=== PATIENT | female | born 1955 | race Caucasian/White ===

== ENCOUNTER 2019-08-31 07:32 | Emergency (ER) | payer MEDICARE, OTHER ==
[~2019-08-31] VITALS: Ht 160 cm; Wt 27.2 kg
[2019-08-31] MEDS ORDERED: ONDANSETRON 4 MG/2 ML VIAL ONE (07:46)
[2019-08-31 08:00] LABS: BASOPHILS % (AUTO) 0.5 % (0.0-2.0); EOSINOPHILS # (AUTO) 0.1 K/uL (0.0-0.7); EOSINOPHILS % (AUTO) 1.4 % (0.0-7.0); HEMATOCRIT 40.5 % (31.2-41.9); HEMOGLOBIN 13.6 g/dL (10.9-14.3); LYMPHOCYTES # (AUTO) 1.8 K/uL (20.0-40.0); LYMPHOCYTES % (AUTO) 24.8 % (20.5-51.5); MEAN CORPUSCULAR HEMOGLOBIN 29.6 uug (24.7-32.8); MEAN CORPUSCULAR HGB CONC 34 g/dL (32.3-35.6); MONOCYTES # (AUTO) 0.4 K/uL (2.0-10.0); NEUTROPHILS # (AUTO) 4.9 K/uL (1.8-8.9); NEUTROPHILS % (AUTO) 67.3 % (38.5-71.5); PLATELET COUNT (AUTO) 251 K/uL (179-408); WHITE BLOOD COUNT (AUTO) 7.2 K/uL (3.8-11.8)
[2019-08-31 08:07] LABS: CREATININE 1.4 mg/dL (0.6-1.3); POTASSIUM 3.8 mmol/L (3.5-5.1)
[2019-08-31] MEDS ORDERED: SWABABLE VALVE TRANSFER SET EA MC ONE (08:18)
[2019-08-31] MEDS: IV NORMAL SALINE 1000 ML BAG IV ONE (08:18)
[2019-08-31] MEDS ORDERED: IV NORMAL SALINE 250 ML IV ONE (08:18)
[2019-08-31] MEDS ORDERED: IOHEXOL 300MG/ML 100 ML INFUS..BTL ONE (08:18)
--- NOTE | 2019-08-31 08:18 | NUR ---
PT IS IN ROOM #1B. DR VILLALOBOS EVALUATED THE PT.
[2019-08-31] MEDS: ONDANSETRON 4 MG/2 ML VIAL IV ONE (08:19)
[2019-08-31 08:23] LABS: BILIRUBIN,DIRECT 0.1 mg/dL (0.0-0.2); BILIRUBIN,TOTAL 0.3 mg/dL (0.2-1.0); TOTAL PROTEIN, SERUM 7.1 g/dL (6.4-8.2)
[2019-08-31] MEDS ORDERED: FAMOTIDINE. 20 MG/2 ML VIAL IV ONE (08:25)
[2019-08-31] MEDS: FAMOTIDINE. 20 MG/2 ML VIAL IV ONE (08:31)
[2019-08-31 10:00] LABS: *BILIRUBIN,URIN NEGATIVE (NEGATIVE); *BLOOD, URINE TRACE (NEGATIVE); *CLARITY,URINE CLEAR (CLEAR); *COLOR,URINE LIGHT YELLOW (YELLOW); *KETONES,URINE NEGATIVE (NEGATIVE); *UROBILINOGEN,URINE 0.2 E.U./dl (NORMAL); LEUKOCYTE ESTERASE ,URINE TRACE (NEGATIVE); NITRITE, URINE NEGATIVE (NEGATIVE); UGLUCOSE NEGATIVE (NEGATIVE)
[2019-08-31] MEDS ORDERED: CIPROFLOXACIN HCL 250 MG TABLET ONE (10:15)
[2019-08-31] MEDS ORDERED: METRONIDAZOLE 500 MG TABLET ONE (10:15)
[2019-08-31] MEDS: METRONIDAZOLE 500 MG TABLET PO ONE (10:20)
[2019-08-31] MEDS: CIPROFLOXACIN HCL 250 MG TABLET PO ONE (10:20)
--- NOTE | 2019-08-31 10:21 | NUR ---
pt was d/c'D to home after dr Rebeca tran. d/c instructions given to the pt by dr rivas.
[2019-08-31 10:24] VITALS: BP 131/69
[2019-08-31 15:42] LABS: BACTERIA,URINE RARE /HPF (NONE SEEN)
[2019-08-31 15:43] LABS: SQUAMOUS EPITHELIAL CELL,UR FEW /HPF (NONE SEEN)
== END 2019-08-31 10:24 | disposition home or self-care (01) ==
LOC: ER 07:32
DX: K52.9 Noninfective gastroenteritis and colitis, unspecified (principal); R19.7 Diarrhea, unspecified; Z20.828 Contact with and (suspected) exposure to other viral communicable diseases
CPT/HCPCS: 36415; 74177; 80048; 80076; 81001; 83690; 84484; 85025; 93005; 96361; 96374; 96375; 99285; J2405; J3490; Q9967; 70030-TC; A4663; J7030; J7050

== ENCOUNTER 2019-09-02 10:08 | Emergency (ER) | payer MEDICARE ==
[~2019-09-02] VITALS: Ht 160 cm; Wt 70.8 kg
[2019-09-02] MEDS ORDERED: SWABABLE VALVE TRANSFER SET EA MC ONE (10:42)
[2019-09-02] MEDS ORDERED: IOHEXOL 300MG/ML 100 ML INFUS..BTL ONE (10:42)
[2019-09-02] MEDS ORDERED: IV NORMAL SALINE 250 ML IV ONE (10:42)
--- NOTE | 2019-09-02 10:46 | NUR ---
PATIENT WAS SEEN BY . PATIENTSTATES SHE WAS JUST HERE AND HAD MULTIPLE TESTS BUT SHE STILL HAS ABDOMINAL PAIN. IV ATTEMPT BY ME JOHN YAN UNSUCCESSFUL. DR MENDEZ ASSISTED WITH US AND PLACED A 20G IN HER LEFT ARM.
[2019-09-02] MEDS: IV NORMAL SALINE 1000 ML BAG IV ONE (11:40)
[2019-09-02] MEDS: ONDANSETRON 4 MG/2 ML VIAL IV ONE (11:42)
[2019-09-02 11:44] LABS: *BILIRUBIN,URIN NEGATIVE (NEGATIVE); *CLARITY,URINE CLEAR (CLEAR); *COLOR,URINE YELLOW (YELLOW); *KETONES,URINE NEGATIVE (NEGATIVE); *UROBILINOGEN,URINE 0.2 E.U./dl (NORMAL); LEUKOCYTE ESTERASE ,URINE NEGATIVE (NEGATIVE); NITRITE, URINE NEGATIVE (NEGATIVE); PH,URINE 5.5 (5.0-8.0); UGLUCOSE NEGATIVE (NEGATIVE)
[2019-09-02] MEDS ORDERED: FAMOTIDINE. 20 MG/2 ML VIAL IV ONE (11:44)
[2019-09-02] MEDS ORDERED: ONDANSETRON 4 MG/2 ML VIAL ONE (11:44)
[2019-09-02 11:46] LABS: BASOPHILS # (AUTO) 0.1 K/uL (0.0-8.0); BASOPHILS % (AUTO) 1.1 % (0.0-2.0); EOSINOPHILS # (AUTO) 0.1 K/uL (0.0-0.7); EOSINOPHILS % (AUTO) 1.1 % (0.0-7.0); HEMATOCRIT 41.2 % (31.2-41.9); HEMOGLOBIN 13.7 g/dL (10.9-14.3); LYMPHOCYTES # (AUTO) 2.1 K/uL (20.0-40.0); MEAN CORPUSCULAR HEMOGLOBIN 29.6 uug (24.7-32.8); MEAN CORPUSCULAR HGB CONC 33 g/dL (32.3-35.6); MEAN CORPUSCULAR VOLUME 89.3 fL (75.5-95.3); MONOCYTES # (AUTO) 0.5 K/uL (2.0-10.0); MONOCYTES % (AUTO) 6.7 % (0.0-11.0); NEUTROPHILS # (AUTO) 5.2 K/uL (1.8-8.9); NEUTROPHILS % (AUTO) 65.1 % (38.5-71.5); RED BLOOD CELL COUNT(AUTO) 4.62 MIL/uL (3.63-4.92); WHITE BLOOD COUNT (AUTO) 7.9 K/uL (3.8-11.8)
[2019-09-02] MEDS: FAMOTIDINE. 20 MG/2 ML VIAL IV ONE (11:47)
[2019-09-02 11:48] LABS: CREATININE 1.4 mg/dL (0.6-1.3); POTASSIUM 3.6 mmol/L (3.5-5.1)
[2019-09-02 11:54] LABS: BILIRUBIN,DIRECT 0.1 mg/dL (0.0-0.2); BILIRUBIN,TOTAL 0.5 mg/dL (0.2-1.0); TOTAL PROTEIN, SERUM 7.4 g/dL (6.4-8.2)
[2019-09-02 12:01] LABS: *BLOOD, URINE TRACE (NEGATIVE)
[2019-09-02 12:16] LABS: BACTERIA,URINE FEW /HPF (NONE SEEN); SQUAMOUS EPITHELIAL CELL,UR FEW /HPF (NONE SEEN); WBC,URINE 0-3 /HPF (0-3)
--- NOTE | 2019-09-02 12:27 | NUR ---
PATIENT ASKED ME TO REMOVE THE IV BECAUSE IT IS "BOTHERING" ME. I REMOVED IT, CATHETER TIP INTACT, PRESSURE APPLIED. SHE IS SITTING UP DRINKING WATER WITH NO COMPLAINTS. NO NAUSEA AT THIS TIME.
--- NOTE | 2019-09-02 12:44 | NUR ---
DC AND FOLLOW UP INSTRUCTIONS GIVEN AND EXPLAINED TO PATIENT WHO STATES SHE UNDERSTANDS ALL INSTRUCTIONS
[2019-09-02 12:53] LABS: PLATELET COUNT (AUTO) 211 K/uL (179-408)
== END 2019-09-02 12:49 | disposition home or self-care (01) ==
LOC: ER 10:08
DX: K44.9 Diaphragmatic hernia without obstruction or gangrene (principal); R31.29 Other microscopic hematuria; R10.13 Epigastric pain; N28.9 Disorder of kidney and ureter, unspecified; Z87.19 Personal history of other diseases of the digestive system
CPT/HCPCS: 36415; 74022; 80048; 80076; 81001; 83690; 84484; 85025; 87086; 93005; 96361; 96374; 96375; 99285; J2405; J3490; U0003; 70030-TC; A4663; J7030; J7050; Q9967